=== PATIENT | female | born 1970 | race Caucasian/White ===

== ENCOUNTER 2023-02-20 09:16 | Outpatient (OUT) | payer OTHER, SELFPAY ==
--- NOTE | 2023-02-20 09:36 | MM_ITS ---
Patient: ANNEL NAVA Exam Date: 02/20/2023 : 1970 Gender:F Ordering : DR CLARISA ALLAN M.D. Admission #: [id number] Family : Order #: [id number] CLICK HERE TO VIEW EXAM RADIOLOGY REPORT PROCEDURE: MM TOMOSYNTHESIS DIAGNOSTIC BI, 02/20/2023, 09:29 US BREAST RT LIMITED, 02/20/2023, 10:46 COMPARISON: [facility] MAMM DIAGNOSTIC 3D KOLE CAD, 08/22/2022. MG MAMM DX 3D RT CAD, 04/30/2022. MG MAMM RT DIAG FU, 09/02/2021. MG MAMM SCREEN 3D KOLE CAD, 07/26/2021. INDICATIONS: Malignant Neoplasm Of Areola Of Right Breast C50.011 Calculator Name NCI Breast Cancer Risk Assessment Tool 5 Year Breast Cancer Risk n/a% Lifetime Breast Cancer Risk n/a% Personal Breast Cancer Yes, Malignant Neoplasm of Rt areola Personal Ovarian Cancer No Treatments Surgical and radiation Family Cancers None LOCATION: [facility] BREAST COMPOSITION: Scattered areas fibroglandular density. FINDINGS: DIAGNOSTIC CATEGORY 2--BENIGN FINDING: RIGHT BREAST: Persistent nipple retraction with underlying opacity. Unremarkable breast implant. Ultrasound evaluation demonstrates persistent nipple retraction as seen on multiple prior studies; no appreciable mass. Annual screening mammography is recommended. LEFT BREAST: No significant suspicious finding. This exam includes additional mammographic views for implant evaluation and shows no visible implant abnormality. No significant change has occurred. RECOMMENDATIONS: ROUTINE MAMMOGRAM AND CLINICAL EVALUATION IN 12 MONTHS. PLEASE NOTE: A NORMAL MAMMOGRAM DOES NOT EXCLUDE THE POSSIBILITY OF BREAST CANCER. A CLINICALLY SUSPICIOUS PALPABLE LUMP SHOULD BE BIOPSIED. Dictated by: Dipak Irby M.D. on 02/20/2023 at 15:02 Approved by: Dipak Irby M.D. on 02/20/2023 at 15:05
--- NOTE | 2023-02-20 09:40 | US_ITS ---
Patient: ANNEL NAVA Exam Date: 02/20/2023 : 1970 Gender:F Ordering : DR CLARISA ALLAN M.D. Admission #: [id number] Family : Order #: [id number] CLICK HERE TO VIEW EXAM RADIOLOGY REPORT PROCEDURE: MM TOMOSYNTHESIS DIAGNOSTIC BI, 02/20/2023, 09:29 US BREAST RT LIMITED, 02/20/2023, 10:46 COMPARISON: MG MAMM DIAGNOSTIC 3D KOLE CAD, 08/22/2022. MG MAMM DX 3D RT CAD, 04/30/2022. MG MAMM RT DIAG FU, 09/02/2021. MG MAMM SCREEN 3D KOLE CAD, 07/26/2021. INDICATIONS: Malignant Neoplasm Of Areola Of Right Breast C50.011 Calculator Name NCI Breast Cancer Risk Assessment Tool 5 Year Breast Cancer Risk n/a% Lifetime Breast Cancer Risk n/a% Personal Breast Cancer Yes, Malignant Neoplasm of Rt areola Personal Ovarian Cancer No Treatments Surgical and radiation Family Cancers None LOCATION: [facility] BREAST COMPOSITION: Scattered areas fibroglandular density. FINDINGS: DIAGNOSTIC CATEGORY 2--BENIGN FINDING: RIGHT BREAST: Persistent nipple retraction with underlying opacity. Unremarkable breast implant. Ultrasound evaluation demonstrates persistent nipple retraction as seen on multiple prior studies; no appreciable mass. Annual screening mammography is recommended. LEFT BREAST: No significant suspicious finding. This exam includes additional mammographic views for implant evaluation and shows no visible implant abnormality. No significant change has occurred. RECOMMENDATIONS: ROUTINE MAMMOGRAM AND CLINICAL EVALUATION IN 12 MONTHS. PLEASE NOTE: A NORMAL MAMMOGRAM DOES NOT EXCLUDE THE POSSIBILITY OF BREAST CANCER. A CLINICALLY SUSPICIOUS PALPABLE LUMP SHOULD BE BIOPSIED. Dictated by: Dipak Irby M.D. on 02/20/2023 at 15:02 Approved by: Dipak Irby M.D. on 02/20/2023 at 15:05
== END 2023-02-20 09:17 ==
LOC: US 09:16
DX: C50.011 Malignant neoplasm of nipple and areola, right female breast (principal); Z17.0 Estrogen receptor positive status [ER+]
CPT/HCPCS: 76642; 77066; G0279

== ENCOUNTER 2023-03-02 06:58 | Outpatient (RCR) | payer OTHER, SELFPAY | END 2023-03-03 14:00 | disposition home or self-care (01) | LOC: PT 06:58 | DX: M79.601 Pain in right arm (principal) | CPT/HCPCS: 97161 ==

== ENCOUNTER 2024-03-03 14:37 | Outpatient (OUT) | payer OTHER, SELFPAY ==
--- NOTE | 2024-03-03 14:44 | MM_ITS ---
Patient Name: ANNEL NAVA MR#: [id number] : 1970 Exam Date: 03/03/2024 Ordering Doctor: DR CLARISA ALLAN M.D. RADIOLOGY REPORT PROCEDURE: MM TOMOSYNTHESIS DIAGNOSTIC BI COMPARISON: MM TOMOSYNTHESIS DIAGNOSTIC BI, 02/20/2023. MG MAMM DIAGNOSTIC 3D KOLE CAD, 08/22/2022. MG MAMM DX 3D RT CAD, 04/30/2022. MG MAMM SCREEN 3D KOLE CAD, 07/26/2021. 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 FINDINGS: DIAGNOSTIC CATEGORY 2--BENIGN FINDING: RIGHT BREAST: Stable surgical changes and scarring within the anterior breast. This exam includes additional mammographic views for implant evaluation and shows no visible implant abnormality. No significant change has occurred. LEFT BREAST: No significant suspicious finding. This exam includes additional mammographic views for implant evaluation and shows no visible implant abnormality. No significant change has occurred. RECOMMENDATIONS: ROUTINE MAMMOGRAM AND CLINICAL EVALUATION IN 12 MONTHS. PLEASE NOTE: A NORMAL MAMMOGRAM DOES NOT EXCLUDE THE POSSIBILITY OF BREAST CANCER. A CLINICALLY SUSPICIOUS PALPABLE LUMP SHOULD BE BIOPSIED. Dictated by: Dipak Irby M.D. on 03/03/2024 at 15:17 Approved by: Dipak Irby M.D. on 03/03/2024 at 15:21
== END 2024-03-03 14:38 | disposition home or self-care (01) ==
PROVIDERS: Visit Provider Radiology Radiation Oncology
DX: C50.011 Malignant neoplasm of nipple and areola, right female breast (principal); Z17.0 Estrogen receptor positive status [ER+]; Z85.3 Personal history of malignant neoplasm of breast
CPT/HCPCS: 77066; G0279